=== PATIENT | male | born 1965 | race Caucasian/White ===

== ENCOUNTER 2018-11-02 15:04 | Outpatient (CLI) | payer OTHER ==
[2018-11-02 15:44] LABS: BASOPHILS # (AUTO) 0.1 10^3/uL (0.0-0.1); BASOPHILS % (AUTO) 0.7 %; EOSINOPHILS # (AUTO) 0.2 10^3/uL (0.0-0.7); EOSINOPHILS % (AUTO) 2.8 %; HGB - HEMOGLOBIN 14.5 g/dL (14.0-18.0); LYMPHOCYTES # (AUTO) 2.8 10^3/uL (1.5-3.5); LYMPHOCYTES % (AUTO) 36.6 %; MEAN CORPUSCULAR HEMOGLOBIN 32.2 pg (27.0-31.0); MEAN CORPUSCULAR HGB CONC 35.3 g/dL (32.0-36.0); MEAN CORPUSCULAR VOLUME 91.1 fL (80.0-94.0); MEAN PLATELET VOLUME 6.6 fL (7.4-11.4); MONOCYTES # (AUTO) 0.8 10^3/uL (0.0-1.0); MONOCYTES % (AUTO) 9.8 %; NEUTROPHILS # (AUTO) 3.8 10^3/uL (1.5-6.6); NEUTROPHILS % (AUTO) 50.1 %; PLT - PLATELET COUNT 246 10^3/uL (130-450); RED BLOOD COUNT 4.51 10^6/uL (4.70-6.10); RED CELL DISTRIBUTION WIDTH 12.5 % (12.0-15.0); WHITE BLOOD COUNT 7.7 x10^3/uL (4.8-10.8)
[2018-11-02 16:14] LABS: ALBUMIN 4.8 g/dL (3.2-5.5); ALBUMIN/GLOBULIN RATIO 1.8 (1.0-2.2); BILIRUBIN,TOTAL 0.8 mg/dL (0.2-1.0); CALCIUM 9.4 mg/dL (8.5-10.3); CREATININE 0.9 mg/dL (0.6-1.2); TOTAL PROTEIN 7.5 g/dL (6.7-8.2)
== END 2018-11-02 15:05 | disposition home or self-care (01) ==
LOC: LAB 15:04
PROVIDERS: ATTEND Internal Medicine Gastroenterology
DX: K62.5 Hemorrhage of anus and rectum (principal); J30.2 Other seasonal allergic rhinitis; E66.9 Obesity, unspecified; F41.8 Other specified anxiety disorders; G47.30 Sleep apnea, unspecified; E11.9 Type 2 diabetes mellitus without complications; E78.5 Hyperlipidemia, unspecified; I10 Essential (primary) hypertension; Z68.35 Body mass index [BMI] 35.0-35.9, adult
CPT/HCPCS: 36415; 80053; 85025

== ENCOUNTER 2018-11-12 12:20 | Day surgery (SDC) | payer OTHER ==
[2018-11-12] MEDS ORDERED: LACTATED RINGERS 1,000 ML IV ONE (12:57)
--- NOTE | 2018-11-12 13:43 | ANESTHESIA ---
Pre-Anesthesia VS, & Labs - Diagnosis rectal bleeding - Procedure colonoscopy with hemorrhoid banding Vital Signs: Temp Pulse Resp BP Pulse Ox 36.4 C L 90 18 142/105 H 96 11/12/18 12:41 11/12/18 12:41 11/12/18 12:41 11/12/18 12:41 11/12/18 12:41 Height 5 ft 7 in Weight (kg) 106 kg - NPO >8 hours - Lab Results Current Lab Results: Laboratory Tests 11/12/18 12:56: POC Whole Bld Glucose 116 H Home Medications and Allergies Home Medications: Ambulatory Orders Ascorbic Acid [Vitamin C] 1,000 mg PO BID 11/04/18 Aspirin [Aspirin EC] 81 mg PO DAILY 11/04/18 Atorvastatin Calcium 80 mg PO DAILY 11/04/18 Cyanocobalamin [Vitamin B-12] 2,500 mcg PO BID 11/04/18 Ergocalciferol [Vitamin D2] 50,000 unit PO Q7D 11/04/18 Fluticasone [Flonase] 2 sprays VAUGHN DAILY PRN 11/04/18 Ibuprofen 800 mg PO BID PRN 11/04/18 Lisinopril/Hydrochlorothiazide [Lisinopril-Hctz 20-25 mg Tab] 1 each PO DAILY 11/04/18 Metformin HCl 500 mg PO BIDWM 11/04/18 PARoxetine HCl [Paroxetine HCl] 20 mg PO DAILY 11/04/18 Ascorbic Acid [Vitamin C] 1,000 mg PO BID 11/04/18 Aspirin [Aspirin EC] 81 mg PO DAILY 11/04/18 Atorvastatin Calcium 80 mg PO DAILY 11/04/18 Cyanocobalamin [Vitamin B-12] 2,500 mcg PO BID 11/04/18 Ergocalciferol [Vitamin D2] 50,000 unit PO Q7D 11/04/18 Fluticasone [Flonase] 2 sprays VAUGHN DAILY PRN 11/04/18 Ibuprofen 800 mg PO BID PRN 11/04/18 Lisinopril/Hydrochlorothiazide [Lisinopril-Hctz 20-25 mg Tab] 1 each PO DAILY 11/04/18 Metformin HCl 500 mg PO BIDWM 11/04/18 PARoxetine HCl [Paroxetine HCl] 20 mg PO DAILY 11/04/18 Allergies/Adverse Reactions: Allergies Allergy/AdvReac Type Severity Reaction Status Date / Time gabapentin AdvReac Fatigue Verified 11/04/18 11:28 Anes History & Medical History - Anesthetic History Anesthesia Complications: reports: No previous complications - Medical History Cardiovascular: reports: Hypertension, High cholesterol Pulmonary: reports: Sleep apnea, CPAP use Gastrointestinal: reports: None Urinary: reports: None Musculoskeletal: reports: None Endocrine/Autoimmune: reports: Type 2 diabetes Skin: reports: None Smoking Status: Never smoker Psychosocial: reports: No issues indicated - Surgical History General: Appendectomy Eyes Ears Nose Throat (EENT): Other Exam General: Alert Dental: WNL Mouth Openin Fingerbreadth Mallampati classification: II Thyromental Distance: greater than 6 cm Respiratory: Lungs clear Cardiovascular: Regular rate Mental/Cognitive Status: Alert/Oriented X3 Plan Anesthesia Type: MAC Consent for Procedure(s) Verified and Reviewed: Yes Code Status: Attempt Resuscitation ASA classification: 2-Mild systemic disease Is this case an emergency?: No
[2018-11-12] MEDS ORDERED: PROPOFOL 200 MG/20 ML VIAL IVP ONE (14:54)
[2018-11-12] MEDS ORDERED: KETOROLAC 30 MG/ML VIAL ONE (15:17)
[2018-11-12 15:31] VITALS: BP 117/75
== END 2018-11-12 12:21 | disposition home or self-care (01) ==
LOC: SDS 12:20
PROVIDERS: ATTEND Internal Medicine Gastroenterology
PROC: 06LY4CC Occlusion of Hemorrhoidal Plexus with Extraluminal Device, Percutaneous Endoscopic Approach (ICD-10-PCS; principal; 2018-11-12 13:30)
DX: K62.5 Hemorrhage of anus and rectum (principal); K64.4 Residual hemorrhoidal skin tags; K64.8 Other hemorrhoids; I10 Essential (primary) hypertension; G47.30 Sleep apnea, unspecified; E11.9 Type 2 diabetes mellitus without complications; Z79.84 Long term (current) use of oral hypoglycemic drugs; E78.5 Hyperlipidemia, unspecified; F41.9 Anxiety disorder, unspecified
CPT/HCPCS: 45398; J7120